=== PATIENT | female | born 1950 | race Caucasian/White ===

== ENCOUNTER 2018-06-04 09:11 | Inpatient (IN) | payer OTHER ==
[2018-06-04 09:22] VITALS: BMI 25.0
[2018-06-04] MEDS ORDERED: dilTIAZem HCL 125 MG/25 ML - 25 ML VIAL ONE ×2 (09:24→09:38)
[2018-06-04] MEDS ORDERED: dilTIAZem HCL 50 MG/10 ML - 10 ML VIAL IVPUSH ONE ×2 (09:27→09:43)
[2018-06-04] MEDS ORDERED: SODIUM CHLORIDE 1,000 ML IV ONE (09:27)
--- NOTE | 2018-06-04 09:28 | PDOC ---
Attending Attestation - Resident Resident Name: Kristofer Michaels - ED Attending Attestation I have performed the following: I have examined & evaluated the patient, The case was reviewed & discussed with the resident, I agree w/resident's findings & plan, Exceptions are as noted - HPI HPI: 06/04/18 09:46 68y F no known pmhx presents with not feeling well. pt found to be in rapid afib upon arrival. states she had some sob initially and felt generally weak this morning after awakening, when she came back from the bathroom she fell on the ground because she was feeling very week, falling on her face, Pt denies any LOC. Pt states after she fell, she had some L shoulder pain and L sided tingling/weakness that resolved after a few minutes. Pt endorses some facial pain in the nose/forehead. denies any cp, n/v, abd pain, back pain, neck pain. pt was feeling well yesterday and the past few days. no associated fever/cough, diarrhea, melena, bpr, dysuria. - Physicial Exam PE: 06/04/18 09:52 GENERAL: The patient is awake, alert, and fully oriented, Nontoxic - in no acute distress. HEAD: Normocephalic, atraumatic. EYES: extraocular movements intact, sclera anicteric, conjunctiva clear. ENT: Normal voice, Moist mucous membranes. NECK: Normal range of motion, supple LUNGS: Breath sounds equal, clear to auscultation bilaterally. No wheezes, no rhonchi, no rales. HEART: irregularly irregular, tachycardic ABDOMEN: Soft, nontender, normoactive bowel sounds. No guarding, no rebound. No CVA tenderness EXTREMITIES: Normal range of motion, trace edema. NEUROLOGICAL: No facial assymetry, Normal speech, moving all 4 extremities spontaneously and symemtrically PSYCH: Normal mood, normal affect. SKIN: Warm, Dry, normal turgor, - Critical Care Time Total Critical Care Time: 45 Critical Care Statement: The care of this patient involved high complexity decision making to prevent further life threatening deterioration of the patient 's condition and/or to evaluate & treat vital organ system(s) failure or risk of failure. - Medical Decision Making 06/04/18 09:53 Upno arrival pt was placed on director of cardiac rehabilitation,e kg obtained with afib with HR of 141. pt was given 10mg of cardizem withimprovement of HR to 120s, given another 10mg with improvement of HR to 100s. BP stable in 120/80s. pt given PO cardizem 06/04/18 10:21 hr stable 06/04/18 13:[address] bah - would recommend epixaban BID 5mg Cardizem 30mg Q6h consult placed in computer 06/04/18 14:07 due to initial presentation of possible L sided pain/tingling upgraded pt to stroke unit NIHSS = 0 not TPA candidate due to resolved sypmtoms upon arrival Heart Score/ECG Review - ECG Impressions Comment:: 06/04/18 10:22 EKg #1 Twelve-lead EKG was performed and reviewed by me. EKG performed 9:18 Irregularly irregular, rate of [address] wave abnormality no prior ekg for comparison EKG#2 EKG performed 10:05 Irregularly irregular, rate of [address] wave abnormality NIH Stroke Scale - Last Known Well Date/Time & Onset Date Last Known Well: 06/04/18 Time Last Known Well: 08:00 - Initial Evaluation Level of consciousness: Alert Ask patient the month and their age: Answers both correctly Ask patient to open & close eyes; make fist and let go: Obeys both correctly Best gaze (horizontal eye movement): Normal Visual field testing: No visual field loss Facial paresis (Show teeth/raise eyebrows/close eyes tight): Normal symmetrical movement Motor Function: Left Arm: Normal Motor Function: Right Arm: Normal (extends arm 90 (or 45) degrees for 10 seconds without drift Motor Function: Left Leg: Normal (extends leg 30 degrees for 5 seconds without drift) Motor Function: Right Leg: Normal (extends leg 30 degrees for 5 seconds without drift) Limb Ataxia: No ataxia Sensory(Use pinprick test arms,legs,trunk,face/side to side): Normal Best language (Describe picture, name items, read sentences): No Aphasia Dysarthria (read several words): Normal articulation Extinction and Inattention: No abnormality - Total Score NIH Stroke Scale Score: 0 tPA Exclusion Checklist 0-3hr - Time Elapsed Date last known well: 06/04/18 Time last known well: 08:00 Elaspsed time: Day(s) and 6 Hour(s) and 8 Minutes - Thrombolytic Therapy Candidate Is the patient eligible for Thrombolytic Therapy?: No - Relative Exclusion Criteria 0-3h Stroke severity too mild: Yes - Ineligibility reason(s) Reasons No tPA given: See reason(s) noted above
[2018-06-04 09:38] LABS: BASO % 0.2 % (0-2.0); EOS % 0.4 % (0-4.5); HEMATOCRIT 48.2 % (32.4-45.2); HEMOGLOBIN 15.8 GM/dL (10.7-15.3); LYMPH % 33.2 % (8-40); MCHC 32.7 g/dl (32.0-36.0); MEAN CELL VOLUME 85.6 fl (80-96); MEAN PLT VOLUME 7.9 fl (7.5-11.1); MONO % 6.6 % (3.8-10.2); NEUT % 59.6 % (42.8-82.8); PLATELET COUNT 226 K/MM3 (134-434); RBC 5.63 M/mm3 (3.60-5.2); RDW 13.6 % (11.6-15.6); WHITE BLOOD COUNT 6.2 K/mm3 (4.0-10.0)
[2018-06-04] MEDS ORDERED: dilTIAZem HCL 60 MG TABLET (FP) PO ONE (09:43)
[2018-06-04] MEDS ORDERED: dilTIAZem HCL 60 MG TABLET (FP) ONE (09:54)
[2018-06-04 10:10] LABS: INR 0.92 (0.83-1.09); PROTHROMBIN TIME (PATIENT) 10.8 SEC (9.7-13.0)
[2018-06-04 10:11] LABS: URINE APPEARANCE CLEAR; URINE BILIRUBIN NEGATIVE (<2.0 mg/dL); URINE COLOR STRAW; URINE GLUCOSE (UA) NEGATIVE (NEGATIVE); URINE KETONE 1+ (NEGATIVE); URINE LEUK ESTERASE NEGATIVE (NEGATIVE); URINE NITRITE NEGATIVE (NEGATIVE); URINE PROTEIN NEGATIVE (NEGATIVE); URINE UROBILINOGEN NEGATIVE mg/dL (0.2-1.0)
[2018-06-04 10:14] LABS: ALBUMIN 4.6 g/dl (3.4-5.0); ALK PHOS 68 U/L (45-117); ANION GAP 10 MMOL/L (8-16); BILIRUBIN,TOTAL 0.8 mg/dL (0.2-1); BLOOD UREA NITROGEN 22 mg/dL (7-18); CALCIUM 9.7 mg/dL (8.5-10.1); CHLORIDE 104 mmol/L (98-107); CO2 25 mmol/L (21-32); CREATININE 0.9 mg/dL (0.55-1.3); GLUCOSE,RANDOM 123 mg/dL (74-106); POTASSIUM 3.3 mmol/L (3.5-5.1); SGOT/AST 28 U/L (15-37); SGPT/ALT 39 U/L (13-61); SODIUM 139 mmol/L (136-145); TOT PROT 8.3 g/dl (6.4-8.2)
--- NOTE | 2018-06-04 10:17 | PDOC ---
History of Present Illness - General Chief Complaint: Injury Stated Complaint: FALL Time Seen by Provider: 06/04/18 09:12 History Source: Patient Exam Limitations: No Limitations - History of Present Illness Initial Comments: 06/04/18 10:02 Patient is an 68F with no significant medical history here today complaining of a fall. She states that she felt a pressure in her chest, short of breath, and weak all over her body. She is unsure if she lost consciousness. Patient stated that she had pain in her left arm along with some numbness and weakness after falling. Now, she is complaining of pain to her nose and face, along with a sensation of palpitations, chest pain, and shortness of breath. Denies fevers, chills, nausea, vomiting. Denies cardiac history. Denies leg swelling, history of blood clots. Past History - Past Medical History Allergies/Adverse Reactions: Allergies Allergy/AdvReac Type Severity Reaction Status Date / Time No Known Allergies Allergy Verified 06/04/18 09:18 Home Medications: Ambulatory Orders NK [No Known Home Medication] 06/04/18 COPD: No - Suicide/Smoking/Psychosocial Hx Smoking History: Unknown if ever smoked Review of Systems - Review of Systems Comments:: 06/04/18 10:17 GENERAL/CONSTITUTIONAL: No fever or chills. No weakness. HEAD, EYES, EARS, NOSE AND THROAT: No change in vision. No sore throat. CARDIOVASCULAR: +chest pain +shortness of breath RESPIRATORY: No cough, wheezing, or hemoptysis. GASTROINTESTINAL: No nausea, vomiting, diarrhea or constipation. GENITOURINARY: No dysuria, frequency, or change in urination. MUSCULOSKELETAL: +L arm pain. No neck or back pain. SKIN: No rash NEUROLOGIC: No headache, vertigo, or change in strength/sensation. ENDOCRINE: No increased thirst. No abnormal weight change HEMATOLOGIC/LYMPHATIC: No anemia, easy bleeding, or history of blood clots. ALLERGIC/IMMUNOLOGIC: No hives or skin allergy. *Physical Exam - Vital Signs Last Vital Signs Temp Pulse Resp BP Pulse Ox 97.6 F 148 H 20 170/100 100 06/04/18 09:18 06/04/18 09:18 06/04/18 09:18 06/04/18 09:18 06/04/18 09:18 - Physical Exam Comments: 06/04/18 10:19 GENERAL: Awake, alert, and fully oriented, in no acute distress HEAD: Bruising along nose and forehead, no lacerations L ARM: No focal tenderness, no signs of trauma EYES: PERRLA, EOMI, sclera anicteric, conjunctiva clear ENT: Auricles normal inspection, hearing grossly normal, nares patent, oropharynx clear without exudates. Moist mucosa NECK: Normal ROM, no midline tenderness LUNGS: No distress, speaks full sentences, clear to auscultation bilaterally HEART: Tachycardic, irregular ABDOMEN: Soft, nontender, normoactive bowel sounds. No guarding, no rebound. No masses EXTREMITIES: Normal inspection, Normal range of motion, no edema. No clubbing or cyanosis. NEUROLOGICAL: Cranial nerves II through XII grossly intact. Normal speech, no focal sensorimotor deficits SKIN: Warm, Dry, normal turgor, no rashes or lesions noted. Moderate Sedation - Procedure Monitoring Vital Signs: Procedure Monitoring Vital Signs Temperature 97.6 F 06/04/18 09:18 Pulse Rate 148 H 06/04/18 09:18 Respiratory Rate 20 06/04/18 09:18 Blood Pressure 170/100 06/04/18 09:18 O2 Sat by Pulse Oximetry (%) 100 06/04/18 09:18 ED Treatment Course - LABORATORY CBC & Chemistry Diagram: 06/04/18 09:30 06/04/18 09:30 - ADDITIONAL ORDERS Additional order review: 06/04/18 09:30 RBC 5.63 H MCV 85.6 MCHC 32.7 RDW 13.6 MPV 7.9 Neutrophils % 59.6 Lymphocytes % 33.2 Monocytes % 6.6 Eosinophils % 0.4 Basophils % 0.2 - Medications Given in the ED: ED Medications Discontinued Medications Generic Name Dose Route Start Last Admin Trade Name Freq PRN Reason Stop Dose Admin Diltiazem HCl 10 mg 06/04/18 09:27 06/04/18 09:35 Cardizem Injection - IVPUSH 06/04/18 09:28 10 mg ONCE ONE Administration Diltiazem HCl 10 mg 06/04/18 09:43 06/04/18 09:45 Cardizem Injection - IVPUSH 06/04/18 09:44 10 mg ONCE ONE Administration Medical Decision Making - Medical Decision Making 06/04/18 10:22 Patient is 68F here today with chest pain and shortness of breath. Vitals show tachycardia with variable rate 140s-160s. Normal RR and SPO2. EKG shows afib with rate of 142. BPs 170/100. Airway intact, breath sounds equal bilaterally. IV access established, started on fluids. Initial EKG shows afib with rvr, rate of 142. ST depressions diffusely, likely rate related. Normal axis. Normal QRS/QTc intervals. 2x 10mg of diltiazem given, rate control established. HR in 90s. Second EKG shows afib with rate of 98. Normal axis. Normal intervals. No st depressions/elevations. Will workup afib with rvr with cbc, cmp, trop, pt/inr. Will evaluate trauma with ct head face. Neck cleared clinically. No suspicion of fracture in L arm. 06/04/18 11:49 CBC normal. CMP shows mild hypokalemia, given KCl PO. Trop undetecable. CT head/ facial bones normal. Hospitalist paged for admission. *DC/Admit/Observation/Transfer Diagnosis at time of Disposition: Atrial fibrillation with RVR - Discharge Dispostion Condition at time of disposition: Stable Decision to Admit order: Yes - Referrals Referrals: Ирина Brown MD [Primary Care Provider] - - Patient Instructions - Post Discharge Activity
[2018-06-04 10:24] LABS: URINE HYALINE CAST 4 /lpf; URINE MUCUS RARE
[2018-06-04] MEDS ORDERED: SODIUM CHLORIDE 500 ML IV STA (11:34)
[2018-06-04] MEDS ORDERED: POTASSIUM CHLORIDE TABS 20 MEQ TABLET.ER (FP) PO ONE ×2 (11:34→11:49)
--- NOTE | 2018-06-04 12:45 | HP ---
CHIEF COMPLAINT: syncopal episode PCP: HISTORY OF PRESENT ILLNESS: Patient is a 68 year old female with no significant past medical history present after a fall this morning. She states that she was in the bathroom passing bowel movement without straining. Upon standing, she felt weak, short of breath, and lightheaded. As she walked back to her bedroom, she experienced syncopal episode. She was on the floor for approx 3-5 minutes. Subjectively felt weakness and parasthesias of her left side face, and left upper extremity weakness, lasting approx. 30 minutes, and spontaneously resolving. She denies loss of consciousness. Patient endorses squeezing chest pain after the fall that persisted until her heart rate was controlled in ED. At time of encounter, patient states she feels back to baseline. Patient's son at bedside notes no facial asymmetry, aphasia, or hemiparesis ER course was notable for: (1) EKG shows Afib with RVR at 142BPM (2) Cardizem 10mg IV X2, 60mg PO (3) IV NS bolus 1L Recent Travel: PAST MEDICAL HISTORY: denies PAST SURGICAL HISTORY: right wrist fracture repair with metal implant within forearm/ wrist. Social History: Smoking: denies Alcohol: denies Drugs: denies Lives: in second story of dwelling; lives in floor above her son. Does yoga daily, and volunteers in [employer]. Family History: Mother: DM Father: from stomach cancer at 85 y/o. Noted to have a "weak heart" Allergies No Known Allergies Allergy (Verified 06/04/18 09:18) HOME MEDICATIONS: Home Medications Medication Instructions Recorded NK [No Known Home Medication] 06/04/18 REVIEW OF SYSTEMS CONSTITUTIONAL: Absent: fever, chills, diaphoresis, generalized weakness, malaise, loss of appetite, weight change HEENT: Absent: rhinorrhea, nasal congestion, throat pain, throat swelling, difficulty swallowing, mouth swelling, ear pain, eye pain, visual changes CARDIOVASCULAR: Absent: chest pain, syncope, palpitations, irregular heart rate, lightheadedness , peripheral edema RESPIRATORY: Absent: cough, shortness of breath, dyspnea with exertion, orthopnea, wheezing, stridor, hemoptysis GASTROINTESTINAL: Absent: abdominal pain, abdominal distension, nausea, vomiting, diarrhea, constipation, melena, hematochezia MUSCULOSKELETAL: Admits: left shoulder pain. Absent: myalgia, arthralgia, joint swelling, back pain NEUROLOGIC: Admits: fall, weakness left sided face, and left upper extremity (resolved), lightheadedness (resolved). Absent: headache, unsteady gait, seizure, mental status changes, bladder or bowel incontinence PSYCHIATRIC: Absent: anxiety, depression, suicidal or homicidal ideation, hallucinations. PHYSICAL EXAMINATION Vital Signs - 24 hr 06/04/18 06/04/18 06/04/18 09:18 10:00 11:28 Temperature 97.6 F Pulse Rate 148 H Pulse Rate [ 101 H 118 H Apical] Respiratory 20 16 18 Rate Blood Pressure 170/100 Blood Pressure 122/75 115/66 [Right Arm] O2 Sat by Pulse 100 95 97 Oximetry (%) 06/04/18 11:56 Temperature Pulse Rate Pulse Rate [ 119 H Apical] Respiratory 20 Rate Blood Pressure Blood Pressure 115/66 [Right Arm] O2 Sat by Pulse 95 Oximetry (%) GENERAL: Awake, alert, and fully oriented, in no acute distress. HEAD: Normal with no signs of trauma. EYES: Pupils equal, round and reactive to light, extraocular movements intact, sclera anicteric. EARS, NOSE, THROAT: Opharynx clear without exudates. Moist mucous membranes. NECK: Supple without lymphadenopathy. No JVD. LUNGS: Breath sounds equal, clear to auscultation bilaterally. No wheezes, and no crackles. No accessory muscle use. HEART: Irregular rate and rhythm. Normal S1 and S2 without murmur, rub or gallop. ABDOMEN: Soft, nontender, not distended. Normoactive bowel sounds X4 quadrants, no guarding, no rebound tenderness. MUSCULOSKELETAL: Normal range of motion at all joints. No bony deformities or tenderness. No CVA tenderness. UPPER EXTREMITIES: 2+ radial pulses b/l, warm, well-perfused. Strength 5/5 b/l upper extremities. LOWER EXTREMITIES: 2+ dorsalis pedis pulses b/l, warm, well-perfused. No calf tenderness, no peripheral edema b/l lower extremities. NEUROLOGICAL: Cranial nerves II-XII intact. Normal speech. Normal gait. Strength 5/5 b/l upper and lower extremities. Sensation intact, equal b/l upper and lower extremities. PSYCHIATRIC: Cooperative. Good eye contact. Appropriate mood and affect. SKIN: Warm, dry, normal turgor, no rashes or lesions noted. Laboratory Results - last 24 hr 06/04/18 06/04/18 06/04/18 09:30 09:30 09:30 WBC 6.2 RBC 5.63 H Hgb 15.8 H Hct 48.2 H MCV 85.6 MCH 28.0 MCHC 32.7 RDW 13.6 Plt Count 226 MPV 7.9 Absolute Neuts (auto) 3.7 Neutrophils % 59.6 Lymphocytes % 33.2 Monocytes % 6.6 Eosinophils % 0.4 Basophils % 0.2 Nucleated RBC % 0 PT with INR 10.80 INR 0.92 Sodium 139 Potassium 3.3 L Chloride 104 Carbon Dioxide 25 Anion Gap 10 BUN 22 H Creatinine 0.9 Creat Clearance w eGFR > 60 Random Glucose 123 H Calcium 9.7 Total Bilirubin 0.8 AST 28 ALT 39 Alkaline Phosphatase 68 Creatine Kinase 370 H Creatine Kinase Index 1.2 CK-MB (CK-2) 4.8 H Troponin I < 0.02 Total Protein 8.3 H Albumin 4.6 TSH 3.16 Urine Color Urine Appearance Urine pH Ur Specific [place] Urine Protein Urine Glucose (UA) Urine Ketones Urine Blood Urine Nitrite Urine Bilirubin Urine Urobilinogen Ur Leukocyte Esterase Urine WBC (Auto) Urine RBC (Auto) Hyaline Casts Urine Mucus 06/04/18 09:34 WBC RBC Hgb Hct MCV MCH MCHC RDW Plt Count MPV Absolute Neuts (auto) Neutrophils % Lymphocytes % Monocytes % Eosinophils % Basophils % Nucleated RBC % PT with INR INR Sodium Potassium Chloride Carbon Dioxide Anion Gap BUN Creatinine Creat Clearance w eGFR Random Glucose Calcium Total Bilirubin AST ALT Alkaline Phosphatase Creatine Kinase Creatine Kinase Index CK-MB (CK-2) Troponin I Total Protein Albumin TSH Urine Color Straw Urine Appearance Clear Urine pH 7.0 Ur Specific [place] 1.010 Urine Protein Negative Urine Glucose (UA) Negative Urine Ketones 1+ H Urine Blood 2+ H Urine Nitrite Negative Urine Bilirubin Negative Urine Urobilinogen Negative Ur Leukocyte Esterase Negative Urine WBC (Auto) <1 Urine RBC (Auto) 5 Hyaline Casts 4 Urine Mucus Rare ASSESSMENT/PLAN: Patient is a 68 year old female with no significant past medical history, presents after a syncopal episode. Syncope -Possibility of TIA with patient's subjective left sided facial weakness, and parasthesia, and left upper extremity weakness. -CT head negative for acute intracranial pathology. -Trop 0.02. Will follow X2. -Neurology consult (Dr. Adorno) -Lipitor 40mg PO daily -Aspirin 324mg PO given in ED -Fall precautions -PT evaluation -Speech and swallow evaluation. Patient tolerated bedside swallow evaluation, however, noted mild nausea after eating chicken. Will place on full liquid diet , and advance as tolerated. Afib -New onset. Patient denies prior history of Afib. TSH 3.16 -Rate control with Cardizem 30mg PO Q6H -Telemetry monitoring -Cardiology consult (Dr. Medina) appreciated. -Patient received Eliquis 5mg PO one time dose in ED. As patient is receiving Aspirin, will hold Eliquis, until repeat CT head tomorrow. -F/U cardiac ECHO Hemoconcentration -Unclear etiology, though patient endorses drinking at least "1 gallon" of water daily. -IV normal saline at 100mL/ hour X 2 liters. Monitor closely for volume overload. -F/U Hb/ Hct FEN -IV normal saline at 100mL/ hour -Within normal limits. Follow CMP -Full liquid diet. Pending speech/ swallow evaluation. Prophylaxis -SCDs, TEDs B/L lower extremities Disposition -Admit to Telemetry. Visit type - Emergency Visit Emergency Visit: Yes ED Registration Date: 06/04/18 Care time: The patient presented to the Emergency Department on the above date and was hospitalized for further evaluation of their emergent condition. - New Patient This patient is new to me today: Yes Date on this admission: 06/04/18 - Critical Care Critical Care patient: No
[2018-06-04] MEDS ORDERED: ASPIRIN 81 MG CHEWABLE TABLETS PO ONE (13:22)
[2018-06-04] MEDS ORDERED: ASPIRIN 81 MG CHEWABLE TABLETS ONE ×2 (13:33→13:34)
[2018-06-04] MEDS ORDERED: APIXABAN 5 MG TABLET PO ONE ×2 (13:42→14:54)
[2018-06-04] MEDS ORDERED: ATORVASTATIN CA 40 MG TABLET (FP) PO ONE (13:57)
[2018-06-04] MEDS ORDERED: ASPIRIN 325 MG ENTERIC COATED TABLET (FP) PO SCH (14:00)
[2018-06-04] MEDS ORDERED: ATORVASTATIN CA 40 MG TABLET (FP) ONE (14:55)
[2018-06-04] MEDS: SODIUM CHLORIDE 1,000 ML IV SCH (15:00)
[2018-06-04] MEDS ORDERED: PT OWN MED DRAWER 7, Y5N ONE (16:47)
--- NOTE | 2018-06-04 17:44 | CON.CARD ---
Consult Consult Specialty:: cardiology Reason for Consultation:: new-onset AF - History of Present Illness Chief Complaint: Ptg ambulatory; A&Ox3; asymptomatic presently. History of Present Illness: 68y white woman (allie Bailey) with no known pmhx presents with not feeling well. pt found to be in rapid afib upon arrival. states she had some sob initially and felt generally weak this morning after awakening, when she came back from the bathroom she fell on the ground because she was feeling very week, falling on her face, Pt denies any LOC. Pt states after she fell, she had some L shoulder pain and L sided tingling/weakness that resolved after a few minutes. Pt endorses some facial pain in the nose/forehead. denies any cp, n/v, abd pain , back pain, neck pain. pt was feeling well yesterday and the past few days. no associated fever/cough, diarrhea, melena, bpr, dysuria. Pt gives hx of occasional bilateral ankle swelling. - History Source History Provided By: Patient, Medical Record Limitations to Obtaining History: No Limitations - Past Medical History Reproductive: Yes: Postmenopausal ...: No - Alcohol/Substance Use Hx Alcohol Use: No - Smoking History Smoking history: Never smoked Home Medications - Allergies Allergies/Adverse Reactions: Allergies Allergy/AdvReac Type Severity Reaction Status Date / Time No Known Allergies Allergy Verified 06/04/18 09:18 - Home Medications Home Medications: Ambulatory Orders Apixaban [Eliquis -] 5 mg PO BID 30 Days #60 tablet 06/05/18 Diltiazem [Cardizem -] 30 mg PO Q6HPO 30 Days #120 tablet 06/05/18 Family Disease History - Family Disease History Family History: Denies Review of Systems - Review of Systems Constitutional: reports: No Symptoms Eyes: reports: No Symptoms HENT: reports: No Symptoms Neck: reports: No Symptoms Cardiovascular: reports: Palpitations Respiratory: reports: No Symptoms Gastrointestinal: reports: No Symptoms Genitourinary: reports: No Symptoms Breasts: reports: No Symptoms Reported Musculoskeletal: reports: Other (ocassional LE muscle "twitches") Neurological: reports: No Symptoms Endocrine: reports: No Symptoms, Unexplained Weight Gain Psychiatric: reports: Anxiety - Risk Factors Known Risk Factors: Yes: Age Vital Signs: Vital Signs Temperature 98.1 F 06/04/18 17:06 Pulse Rate 87 06/04/18 17:06 Respiratory Rate 18 06/04/18 17:06 Blood Pressure 152/86 06/04/18 17:06 O2 Sat by Pulse Oximetry (%) 97 06/04/18 17:06 Abnormal Lab Results 06/05/18 06/05/18 06:38 06:38 Chloride 111 H Anion Gap 4 L Calcium 8.0 L Total Bilirubin 1.2 H C-Reactive Protein 0.4 H Total Protein 5.7 L Albumin 3.2 L HDL Cholesterol 89 H Constitutional: Yes: Anxious Eyes: Yes: WNL HENT: Yes: WNL Neck: Yes: WNL Respiratory: Yes: WNL Gastrointestinal: Yes: Soft Renal/: No: Anuria Cardiovascular: Yes: Regular Rate and Rhythm JVD: No Carotid Bruit: No PMI: Non-Displaced Heart Sounds: Yes: S1, S2 Murmur: Yes: Systolic Murmur, Grade 1 Musculoskeletal: Yes: WNL Extremities: Yes: WNL Edema: No Peripheral Pulses WNL: Yes Integumentary: Yes: WNL Neurological: Yes: WNL Psychiatric: Yes: WNL - Other Data Labs, Other Data: CBC, BMP 06/04/18 09:30 06/04/18 09:30 INR, PTT INR 0.92 (0.83-1.09) 06/04/18 09:30 Troponin, BNP 06/04/18 06/04/18 09:30 14:04 Troponin I < 0.02 0.02 Troponin, BNP 06/04/18 06/04/18 09:30 14:04 Troponin I < 0.02 0.02 Abnormal Lab Results 06/05/18 06/05/18 06:38 06:38 Chloride 111 H Anion Gap 4 L Calcium 8.0 L Total Bilirubin 1.2 H C-Reactive Protein 0.4 H Total Protein 5.7 L Albumin 3.2 L HDL Cholesterol 89 H Imaging - Results Chest X-ray: Image Reviewed EKG: Image Reviewed Other: Image Reviewed (telemetry: NSR) Problem List - Problems (1) HTN (hypertension) Code(s): I10 - ESSENTIAL (PRIMARY) HYPERTENSION (2) Syncope Assessment/Plan: Pt is unsure if she lost consciousness. TNI < 0.02; f/u serially. F/u orthostatic vital signs. Avoid dehydration. ECHO for LVEF. Code(s): R55 - SYNCOPE AND COLLAPSE (3) Atrial fibrillation with RVR Assessment/Plan: IVP diltiazem, with PO diltiazem; now converted to normal sinus rhythm. Received one dose of apixaban, and is on ASA (?TIA; no acute pathology on CT head). EKG: initially AF, with ?LVH, and nonspcific ST changes; now telemetry shows NSR with frequent APCs. TNI < 0.02 x 2. TSH WNL. F/u serial EKGs ECHO for LVEF, chamber sizes, valve status. Code(s): I48.91 - UNSPECIFIED ATRIAL FIBRILLATION (4) Hypokalemia Assessment/Plan: replete; keep K+ 4-4.5, and follow all electrolytes. W/u regarding etiology of K+ reduction. Code(s): E87.6 - HYPOKALEMIA
[2018-06-04] MEDS: dilTIAZem HCL 30 MG TABLET (FP) PO SCH ×2 (18:33→23:17)
--- NOTE | 2018-06-04 19:39 | PN ---
Teaching Attending Note Name of Resident: Dhruv Castro ATTENDING PHYSICIAN STATEMENT I saw and evaluated the patient. I reviewed the resident's note and discussed the case with the resident. I agree with the resident's findings and plan as documented. SUBJECTIVE: Patient is a 68 year old female with no significant past medical history presented after having a syncopal episode and hit her head and nose. As per son , patient had a slurred speech which lasted a short period of time, and left sided weakness which resolved as per son who is at bedside. Vital Signs Temperature 98.2 F 06/04/18 17:44 Pulse Rate 83 06/04/18 17:44 Respiratory Rate 18 06/04/18 17:44 Blood Pressure 114/66 06/04/18 17:44 O2 Sat by Pulse Oximetry (%) 97 06/04/18 17:06 Initial Vital Signs Temp Pulse Resp BP Pulse Ox 97.6 F 148 H 20 170/100 100 06/04/18 09:18 06/04/18 09:18 06/04/18 09:18 06/04/18 09:18 06/04/18 09:18 GENERAL: Awake, alert, and fully oriented, in no acute distress. HEAD: Normal with no signs of trauma. EYES: Pupils equal, round and reactive to light, extraocular movements intact, sclera anicteric. EARS, NOSE, THROAT: Opharynx clear without exudates. Moist mucous membranes. NECK: Supple without lymphadenopathy. No JVD. LUNGS: Breath sounds equal, clear to auscultation bilaterally. No wheezes, and no crackles. No accessory muscle use. HEART: Irregular rate and rhythm. Normal S1 and S2 without murmur, rub or gallop. ABDOMEN: Soft, nontender, not distended. Normoactive bowel sounds X4 quadrants, no guarding, no rebound tenderness. MUSCULOSKELETAL: Normal range of motion at all joints. No bony deformities or tenderness. No CVA tenderness. EXTREMITIES: positive for pulses , warm, well-perfused. No calf tenderness, positive for trace edema bl. NEUROLOGICAL: Cranial nerves II-XII intact. Normal speech. Normal gait. Strength 5/5 b/l upper and lower extremities. sensation intact PSYCHIATRIC: Cooperative. Good eye contact. Appropriate mood and affect. SKIN: Warm, dry, normal turgor, no rashes or lesions noted. CBCD WBC 6.2 K/mm3 (4.0-10.0) 06/04/18 09:30 RBC 5.63 M/mm3 (3.60-5.2) H 06/04/18 09:30 Hgb 15.8 GM/dL (10.7-15.3) H 06/04/18 09:30 Hct 48.2 % (32.4-45.2) H 06/04/18 09:30 MCV 85.6 fl (80-96) 06/04/18 09:30 MCHC 32.7 g/dl (32.0-36.0) 06/04/18 09:30 RDW 13.6 % (11.6-15.6) 06/04/18 09:30 Plt Count 226 K/MM3 (134-434) 06/04/18 09:30 MPV 7.9 fl (7.5-11.1) 06/04/18 09:30 CMP Sodium 139 mmol/L (136-145) 06/04/18 09:30 Potassium 3.3 mmol/L (3.5-5.1) L 06/04/18 09:30 Chloride 104 mmol/L (98-107) 06/04/18 09:30 Carbon Dioxide 25 mmol/L (21-32) 06/04/18 09:30 Anion Gap 10 MMOL/L (8-16) 06/04/18 09:30 BUN 22 mg/dL (7-18) H 06/04/18 09:30 Creatinine 0.9 mg/dL (0.55-1.3) 06/04/18 09:30 Creat Clearance w eGFR > 60 (>60) 06/04/18 09:30 Random Glucose 123 mg/dL (74-106) H 06/04/18 09:30 Calcium 9.7 mg/dL (8.5-10.1) 06/04/18 09:30 Total Bilirubin 0.8 mg/dL (0.2-1) 06/04/18 09:30 AST 28 U/L (15-37) 06/04/18 09:30 ALT 39 U/L (13-61) 06/04/18 09:30 Alkaline Phosphatase 68 U/L (45-117) 06/04/18 09:30 Total Protein 8.3 g/dl (6.4-8.2) H 06/04/18 09:30 Albumin 4.6 g/dl (3.4-5.0) 06/04/18 09:30 CARDIAC ENZYMES Creatine Kinase 370 IU/L (26-192) H 06/04/18 09:30 Troponin I 0.02 ng/ml (0.00-0.05) 06/04/18 14:04 Home Medications Medication Instructions Recorded NK [No Known Home Medication] 06/04/18 ASSESSMENT AND PLAN: Patient is a 68 year old female with no significant past medical history, presents after a syncopal episode with TIA symptoms and was found to have Afib with RVR . # Afibe with RVR: TSH 3.16, tele. for consult , discussed with, given aspirin in ED. will place her on lipitor 40mg daily, ECHO ordered, follow # Syncope s/p hitting her head and the nose, no fx on xray # TIa r/o CVA on aspirin and lipitor .neuro consult, initial CT is negative DVT Px: -SCDs, TEDs B/L lower extremities -Admit to to stroke unit.
[2018-06-04] MEDS ORDERED: APIXABAN 5 MG TABLET PO SCH (22:00)
[2018-06-05] MEDS: SODIUM CHLORIDE 1,000 ML IV SCH ×2 (04:40→15:34)
[2018-06-05] MEDS: dilTIAZem HCL 30 MG TABLET (FP) PO SCH ×3 (06:06→17:32)
[2018-06-05 07:22] LABS: HEMATOCRIT 38.7 % (32.4-45.2); HEMOGLOBIN 12.6 GM/dL (10.7-15.3); MCH 28.2 pg (25.7-33.7); MCHC 32.6 g/dl (32.0-36.0); MEAN CELL VOLUME 86.5 fl (80-96); PLATELET COUNT 182 K/MM3 (134-434); RBC 4.48 M/mm3 (3.60-5.2); RDW 13.5 % (11.6-15.6); WHITE BLOOD COUNT 4.7 K/mm3 (4.0-10.0)
[2018-06-05 07:40] LABS: ALBUMIN 3.2 g/dl (3.4-5.0); ALK PHOS 46 U/L (45-117); ANION GAP 4 MMOL/L (8-16); BILIRUBIN,TOTAL 1.2 mg/dL (0.2-1); BLOOD UREA NITROGEN 15 mg/dL (7-18); CHLORIDE 111 mmol/L (98-107); CO2 27 mmol/L (21-32); CREATININE 0.8 mg/dL (0.55-1.3); GLUCOSE,RANDOM 102 mg/dL (74-106); PHOSPHOROUS 3.3 mg/dL (2.5-4.9); POTASSIUM 3.9 mmol/L (3.5-5.1); SGOT/AST 21 U/L (15-37); SGPT/ALT 28 U/L (13-61); SODIUM 142 mmol/L (136-145); TOT PROT 5.7 g/dl (6.4-8.2)
[2018-06-05] MEDS ORDERED: ASPIRIN 325 MG ENTERIC COATED TABLET (FP) PO SCH (10:00)
--- NOTE | 2018-06-05 10:43 | ECHO ---
Version: 1 Name: BERNARD GRACE Exam: Adult Echocardiogram Study Date: 06/05/2018, 7:34 AM Age: 68 Years MMode/2D Measurements & Calculations IVSd: 0.87 cm LVIDs: 3.0 cm LVIDd: 4.5 cm LVPWd: 0.86 cm LAV (MOD-bp): 40.0 ml Ao root diam: 3.1 cm LA dimension: 3.3 cm Doppler Measurements & Calculations MV E max yuval: 78.1 cm/sec Med E/e': 10.4 MV A max yuval: 73.7 cm/sec Med Peak E' Yuval: 7.5 cm/sec MV E/A: 1.06 Lat E/e': 7.5 Lat Peak E' Yuval: 10.4 cm/sec Procedure A two-dimensional transthoracic echocardiogram with color flow and Doppler was performed. Left Ventricle The left ventricular size, thickness and function are normal. The left ventricular ejection fraction is normal. Left Ventricular Filling pattern is normal for age. The left ventricular wall motion is norm al. Right Ventricle The right ventricle is normal in size and function. Atria Normal left and right atrial size and function. Mitral Valve There is mild mitral valve thickening. There is no mitral valve stenosis. There is mild mitral regur gitation. Tricuspid Valve The tricuspid valve is not well visualized. There is no tricuspid stenosis. There was insufficient T R detected to calculate RV systolic pressure. Aortic Valve The aortic valve is normal in structure and function. No hemodynamically significant valvular aortic stenosis. No aortic regurgitation is present. Pulmonic Valve The pulmonic valve is not well visualized. There is no pulmonic valvular stenosis. Mild pulmonic varun vular regurgitation. Great Vessels The aortic root is normal size. Pericardium/Pleura There is no pericardial effusion. Summary Statements The left ventricular size, thickness and function are normal The left ventricular ejection fraction is normal. The left ventricular wall motion is normal. There is mild mitral regurgitation. Left Ventricular Filling pattern is normal for age. There was insufficient TR detected to calculate RV systolic pressure. MD David Medina 06/05/2018, 10:42 AM Ordering Physician: SHANEKA LYLES Referring Physician: Chavo Ospina Performed By: Nanda Chadwick
--- NOTE | 2018-06-05 11:59 | EKG ---
Test Reason : Blood Pressure : / mmHG Vent. Rate : 070 BPM Atrial Rate : 070 BPM P-R Int : 166 ms QRS Dur : 088 ms QT Int : 394 ms P-R-T Axes : 053 -01 017 degrees QTc Int : 425 ms NORMAL SINUS RHYTHM NORMAL ECG WHEN COMPARED WITH ECG OF 04-JUN-2018 10:05, SINUS RHYTHM HAS REPLACED ATRIAL FIBRILLATION Confirmed by OSCAR PATRICIO MD ([id number]) on 06/05/2018 11:59:24 AM Referred By: Kerry LA Confirmed By:OSCAR PATRICIO MD
--- NOTE | 2018-06-05 14:34 | CON.NEURO ---
Consult Consult Specialty:: Kyree Referred by:: ER - History of Present Illness History of Present Illness: 68years old woman with ?? PMH patient was at her [facility] with sudden onset of upset stomach shaking allover ?? near syncope with no fall no head trauma No urinary inconetnce No tongue biting Patient was found in rapid Afib AC was astarted two head Ct noted - History Source History Provided By: Patient Limitations to Obtaining History: No Limitations - Past Medical History ...: No - Alcohol/Substance Use Hx Alcohol Use: No - Smoking History Smoking history: Never smoked Home Medications - Allergies Allergies/Adverse Reactions: Allergies Allergy/AdvReac Type Severity Reaction Status Date / Time No Known Allergies Allergy Verified 06/04/18 09:18 - Home Medications Home Medications: Ambulatory Orders NK [No Known Home Medication] 06/04/18 Family Disease History - Family Disease History Family History: Denies (sz) Review of Systems - Review of Systems Constitutional: reports: No Symptoms Eyes: reports: No Symptoms HENT: reports: No Symptoms Neurological: reports: Headache, Incoordination, Numbness Physical Exam-Neuro Vital Signs: Vital Signs Temperature 97.9 F 06/05/18 12:32 Pulse Rate 74 06/05/18 12:32 Respiratory Rate 16 06/05/18 12:32 Blood Pressure 139/72 06/05/18 12:32 O2 Sat by Pulse Oximetry (%) 97 06/05/18 09:38 Constitutional: Yes: Well Nourished Neck: Yes: WNL Cardiovascular: Yes: WNL Labs: CBC, BMP 06/05/18 06:38 06/05/18 06:38 INR, PTT INR 0.92 (0.83-1.09) 06/04/18 09:30 - Neuro Exam Level Of Consciousness: Yes: Oriented to Person, Oriented to Place, Oriented to Time Eyes: Yes: PERRLA Speech: WNL Dominant Hand: Right Cranial Nerves II-XII Intact: Yes Gag: Present DTR's: 1+ Left Bicep, 1+ Right Bicep, 1+ Left Brachioradialis, 1+ Right Brachioradialis Response to light touch: Normal Response to pain prick: Normal Response to temperature: Normal Response to vibration: Normal Motor Strength: 3/5: Left Arm, Right Arm, Left Leg, Right Leg Gait: Deferred Imaging - Results Cat Scan: Image Reviewed Problem List - Problems (1) Syncope Assessment/Plan: TIA with cardiac Arrythmia No nee dfor MRI Only AC No ASA Need EEG as outpatient Neurol ok to go home Follow up with cardiology Code(s): R55 - SYNCOPE AND COLLAPSE
--- NOTE | 2018-06-05 14:51 | CONSULT ---
Admitting History and Physical - Admission Chief Complaint: Pt. is s/p syncopal episode. Atrial fibrilation with RVR. Limitations to Obtaining History: No Limitations - Past Medical History ...: No - Smoking History Smoking history: Never smoked - Alcohol/Substance Use Hx Alcohol Use: No History - Admission Reason For Visit: ATRIAL FIBRILLATION WITH RAPID VENTRICULAR RESPONE - General Mental Status: Alert and Oriented, Awake and Alert, Able to Follow Commands Attention: Intact Ability to Follow Directions: Good Head/Neck Control: WFL - Hearing Hearing: Normal Hearing: Normal Hearing Aide: No With Patient: No Speech Evaluation - Communication Primary Language: SWEDISH (Pt. able to speak and understand Hebrew at conversational level.) Communication: Yes: Within Normal Limits Oral Expression Ability: Yes: No Impairment - Speech Production Apraxia: No Able to Make Needs Known: Yes: WNL Intelligibility: Yes: WNL - Speech Characteristics Voice Loudness: Normal Voice Pitch: Yes: Normal Voice Phonatory-based Quality: Yes: Normal Speech Pattern: Normal Nasal Resonance: Normal Articulation: Yes: Precise Rate of Speech: Intact - Language/Auditory Comprehension Follows: Yes: 1 Stage Simple Commands Observation: Able to respond to yes/no queries: Yes, Yes/No Confusion: No, Comprehends Conversational Speech: Yes - Language/Verbal Expression Able to Respond to Simple Queries: Yes: WNL Able to Communicate Wants and Needs: Yes: WNL Functional Communication Status: Yes: WNL Oral Expression: Communicates using full sentences. No difficulty reported by patient or her [id number]. Attention: Yes: Intact - Memory/Perception longterm Memory: Yes: WNL Short Term Memory: Yes: WNL - Swallow Evaluation/Bedside Assessment Current Nutritional Intake: Regular Oral Secretions: Yes: WFL Tracheostomy Present: No Patient on Ventilator: No Dentition: Yes: Adequate Facial Symmetry at Rest: Symmetrical Facial Symmetry on Retraction: Symmetrical Facial Movement: Controlled Sensation: Normal Lingual Movement: Normal Lingual Speed of Movement: Normal Lingual Movement Strgth Against Opposition: Normal Lingual Movement Characteristics: Normal Soft Palate Description: Normal Color Hard Palate Description: Normal Color Gag Reflex: Strong Labial Seal: WFL Chewing: WFL Oral Prep Time: WFL A-P Transit: WFL Pocketing: None Timing of Swallow: WFL Coughing/Throat Clear: No Change in Voice: No Recommendations - Speech Evaluation, Impression/Plan Impression: Pt. presents with intact receptive and expressive communication. Swallow function judged WNL for regular solid textures and thin liquids. Speech therapy intervention not indicated at this time. Recommended Therapies: Other - Dysphagia Impressions/Plan Swallowing Skills: WFL - Recommendations Diet Consistency: Regular Medication Administration: Whole with water Liquids: Thin Liquids
--- NOTE | 2018-06-05 18:59 | DS ---
Physical Exam: SUBJECTIVE: Patient seen and examined at bedside this morning. No acute overnight events. No chest pain, no palpitations. She remains rate controlled in sinus rhythm on telemetry. She expresses desire to go home. OBJECTIVE: Vital Signs Period Temp Pulse Resp BP Sys/Lazcano Pulse Ox Last 24 Hr 97.8 F-98.2 F 67-85 16-18 108-139/49-87 97-98 PHYSICAL EXAM GENERAL: Awake, alert, and fully oriented, in no acute distress. HEAD: Normal with no signs of trauma. EYES: Pupils equal, round and reactive to light, extraocular movements intact, sclera anicteric. EARS, NOSE, THROAT: Opharynx clear without exudates. Moist mucous membranes. NECK: Supple without lymphadenopathy. No JVD. LUNGS: Breath sounds equal, clear to auscultation bilaterally. No wheezes, and no crackles. No accessory muscle use. HEART: Regular rate and rhythm. Normal S1 and S2 without murmur, rub or gallop. ABDOMEN: Soft, nontender, not distended. Normoactive bowel sounds X4 quadrants, no guarding, no rebound tenderness. MUSCULOSKELETAL: Normal range of motion at all joints. No bony deformities or tenderness. No CVA tenderness. UPPER EXTREMITIES: 2+ radial pulses b/l, warm, well-perfused. Strength 5/5 b/l upper extremities. LOWER EXTREMITIES: 2+ dorsalis pedis pulses b/l, warm, well-perfused. No calf tenderness, no peripheral edema b/l lower extremities. NEUROLOGICAL: Cranial nerves II-XII intact. Normal speech. Normal gait. Strength 5/5 b/l upper and lower extremities. Sensation intact, equal b/l upper and lower extremities. PSYCHIATRIC: Cooperative. Good eye contact. Appropriate mood and affect. SKIN: Warm, dry, normal turgor, no rashes or lesions noted. LABS Laboratory Results - last 24 hr 06/04/18 06/04/18 06/05/18 20:20 20:20 06:38 WBC 4.7 RBC 4.48 Hgb 12.6 Hct 38.7 D MCV 86.5 MCH 28.2 MCHC 32.6 RDW 13.5 Plt Count 182 MPV 8.0 Sodium Potassium Chloride Carbon Dioxide Anion Gap BUN Creatinine Creat Clearance w eGFR Random Glucose Hemoglobin A1c % 6.0 Calcium Phosphorus Magnesium Total Bilirubin AST ALT Alkaline Phosphatase Troponin I < 0.02 C-Reactive Protein Total Protein Albumin Triglycerides Cholesterol Total LDL Cholesterol HDL Cholesterol 06/05/18 06/05/18 06:38 06:38 WBC RBC Hgb Hct MCV MCH MCHC RDW Plt Count MPV Sodium 142 Potassium 3.9 Chloride 111 H Carbon Dioxide 27 Anion Gap 4 L BUN 15 Creatinine 0.8 Creat Clearance w eGFR > 60 Random Glucose 102 Hemoglobin A1c % Calcium 8.0 L Phosphorus 3.3 Magnesium 2.0 Total Bilirubin 1.2 H AST 21 ALT 28 Alkaline Phosphatase 46 Troponin I C-Reactive Protein 0.4 H Total Protein 5.7 L Albumin 3.2 L Triglycerides 71 Cholesterol 194 Total LDL Cholesterol 88 HDL Cholesterol 89 H HOSPITAL COURSE: Date of Admission:06/04/18 Date of Discharge: 06/05/18 Patient is a 68 year old female with no significant past medical history, presents after a syncopal episode associated with chest palpitations and chest tightness. She noted left sided facial and upper extremity weakness with parasthesias that spontaneously resolved approx. [address] head negative for intracranial hemorrhage. In the ED she was found to be in Afib with RVR at 142 BPM. Denied prior history of Afib. She was converted, and rate controlled with Cardizem. Patient was given Aspirin, Statin, and one dose of Eliquis. Neurology evaluation noted TIA with cardiac arrhythmia, and no need for MRI. Repeat CT head confirmed no intracranial hemorrhage, and Eliquis was continued. ECHO showed normal LVEF, LV size thickness and function. Patient cleared for discharge by neurology and cardiology. Patient discharged with Cardizem, Eliquis, and Atorvastatin. No aspirin as per neurology recommendations. Follow up with primary care physician, cardiology (exercise stress test, and EP follow up), and neurology (EEG outpatient). Patient remained rate controlled in sinus rhythm. Minutes to complete discharge: 35 Discharge Summary Reason For Visit: ATRIAL FIBRILLATION WITH RAPID VENTRICULAR RESPONE Current Active Problems Atrial fibrillation with RVR (Acute) HTN (hypertension) (Acute) Hypokalemia (Acute) Syncope (Acute) Condition: Stable - Instructions Diet, Activity, Other Instructions: You were admitted after a fall at home. Your heart rate was noted to be irregular (Atrial Fibrillation) and your were given medication to control the heart rate. You will begin taking Cardizem 30mg every 6 hours daily to control the heart rate You will begin taking Eliquis 5mg every 12 hours daily to prevent blood clots. This medication may increase your bleeding risk with any cuts, falls, or injury. You will begin taking Lipitor 40mg daily. Follow up with your primary care provider for bloodwork (liver function tests) within 4 weeks of starting the medication. Let your primary care physician know immediately if you develop any muscle pains. Follow up with your primary care physician within two- three days after discharge Follow up with Material Controller within one week of discharge. You may need stress test, and follow up with an marketing data specialist, and will discuss this further at your appointment. Follow up with Neurologist within one week of discharge. You will need EEG done as an outpatient. Discuss this further with neurologist at your appointment. Please return to the nearest Emergency Department if you experience any worsening symptoms, fevers, chills, shortness of breath, chest pain, palpitations, abdominal pain, nausea, vomiting, falls, loss of consciousness. Referrals: Ирина Brown MD [Primary Care Provider] - David Medina MD [Staff Physician] - Margret Adorno MD [Staff Physician] - Disposition: HOME - Home Medications Comprehensive Discharge Medication List: Ambulatory Orders Apixaban [Eliquis -] 5 mg PO BID 30 Days #60 tablet 06/05/18 Diltiazem [Cardizem -] 30 mg PO Q6HPO 30 Days #120 tablet 06/05/18 This patient is new to me today: No Emergency Visit: Yes ED Registration Date: 06/04/18 Care time: The patient presented to the Emergency Department on the above date and was hospitalized for further evaluation of their emergent condition. Critical Care patient: No - Discharge Referral Referred to [facility] No
--- NOTE | 2018-06-05 19:01 | EKG ---
Test Reason : Blood Pressure : / mmHG Vent. Rate : 097 BPM Atrial Rate : 077 BPM P-R Int : 000 ms QRS Dur : 086 ms QT Int : 362 ms P-R-T Axes : 000 003 -06 degrees QTc Int : 459 ms ATRIAL FIBRILLATION MINIMAL VOLTAGE CRITERIA FOR LVH, MAY BE NORMAL VARIANT NONSPECIFIC ST ABNORMALITY ABNORMAL ECG NO PREVIOUS ECGS AVAILABLE Confirmed by OSCAR PATRICIO MD ([id number]) on 06/05/2018 7:00:55 PM Referred By: Confirmed By:OSCAR PATRICIO MD
--- NOTE | 2018-06-05 19:04 | EKG ---
Test Reason : Blood Pressure : / mmHG Vent. Rate : 142 BPM Atrial Rate : 131 BPM P-R Int : 000 ms QRS Dur : 086 ms QT Int : 266 ms P-R-T Axes : 000 021 -61 degrees QTc Int : 409 ms ATRIAL FIBRILLATION WITH RAPID VENTRICULAR RESPONSE NONSPECIFIC ST AND T WAVE ABNORMALITY ABNORMAL ECG NO PREVIOUS ECGS AVAILABLE Confirmed by OSCAR PATRICIO MD ([id number]) on 06/05/2018 7:03:42 PM Referred By: Confirmed By:OSCAR PATRICIO MD
--- NOTE | 2018-06-05 19:30 | PN ---
Teaching Attending Note Name of Resident: Dhruv Castro ATTENDING PHYSICIAN STATEMENT I saw and evaluated the patient. I reviewed the resident's note and discussed the case with the resident. I agree with the resident's findings and plan as documented. SUBJECTIVE: Feels better - no further episodes of L facial numbness/tingling OBJECTIVE: Afebrile/Hemodynamically Stable. Last Vital Signs Temp Pulse Resp BP Pulse Ox 98.2 F 75 18 130/87 97 06/05/18 17:29 06/05/18 17:29 06/05/18 17:29 06/05/18 17:29 06/05/18 09:38 HEENT - Atraumatic, Normocephalic Heart - S1, S2, RRR Lungs - clear to auscultation Abdomen - Soft, non-tender. Bowel Sounds normal. Extremities - mild pedal edema/no calf tenderness Neuro - AAO x 3. Tone/Power normal all 4 extremities. Laboratory Results - last 24 hr 06/04/18 06/04/18 06/05/18 20:20 20:20 06:38 WBC 4.7 RBC 4.48 Hgb 12.6 Hct 38.7 D MCV 86.5 MCH 28.2 MCHC 32.6 RDW 13.5 Plt Count 182 MPV 8.0 Sodium Potassium Chloride Carbon Dioxide Anion Gap BUN Creatinine Creat Clearance w eGFR Random Glucose Hemoglobin A1c % 6.0 Calcium Phosphorus Magnesium Total Bilirubin AST ALT Alkaline Phosphatase Troponin I < 0.02 C-Reactive Protein Total Protein Albumin Triglycerides Cholesterol Total LDL Cholesterol HDL Cholesterol 06/05/18 06/05/18 06:38 06:38 WBC RBC Hgb Hct MCV MCH MCHC RDW Plt Count MPV Sodium 142 Potassium 3.9 Chloride 111 H Carbon Dioxide 27 Anion Gap 4 L BUN 15 Creatinine 0.8 Creat Clearance w eGFR > 60 Random Glucose 102 Hemoglobin A1c % Calcium 8.0 L Phosphorus 3.3 Magnesium 2.0 Total Bilirubin 1.2 H AST 21 ALT 28 Alkaline Phosphatase 46 Troponin I C-Reactive Protein 0.4 H Total Protein 5.7 L Albumin 3.2 L Triglycerides 71 Cholesterol 194 Total LDL Cholesterol 88 HDL Cholesterol 89 H Current Medications Generic Name Dose Route Start Last Admin Trade Name Freq PRN Reason Stop Dose Admin Apixaban 5 mg 06/05/18 22:00 Eliquis - PO BID SANJUANITA Atorvastatin Calcium 40 mg 06/05/18 22:00 Lipitor - PO HS SANJUANITA Diltiazem HCl 30 mg 06/04/18 18:00 06/05/18 17:32 Cardizem - PO 30 mg Q6HPO SANJUANITA Administration Sodium Chloride 1,000 mls @ 100 mls/hr 06/04/18 14:00 06/05/18 15:34 Normal Saline - IV 06/05/18 23:59 Not Given ASDIR SANJUANITA ASSESSMENT/PLAN: 68 year old female with no sig PMH, presents after developing localizing neurological signs and syncope, found to have newly recognized Atrial Fibrillation with RVR that reverted to SR with Cardizem. 1. Atrial fibrillation with RVR - newly recognized. Back in SR. Medically Stable for discharge on Cardizem and Eliquis as per Cardio. For outpatient Cardiology follow up. Echo normal. TSH 3.16 2. Possible TIA/Syncope CT Head - no acute intracranial findings. Evaluated by Neuro - for EEG as outpatient with Neuro Follow up. Started on Eliquis.
--- NOTE | 2018-06-05 21:57 | PN ---
Progress Note, Physician Chief Complaint: Pt A&Ox3; feels well. History of Present Illness: 68y white woman (allie Bailey) with no known pmhx presents with not feeling well. pt found to be in rapid afib upon arrival. states she had some sob initially and felt generally weak this morning after awakening, when she came back from the bathroom she fell on the ground because she was feeling very week, falling on her face, Pt denies any LOC. Pt states after she fell, she had some L shoulder pain and L sided tingling/weakness that resolved after a few minutes. Pt endorses some facial pain in the nose/forehead. denies any cp, n/v, abd pain , back pain, neck pain. pt was feeling well yesterday and the past few days. no associated fever/cough, diarrhea, melena, bpr, dysuria. Pt gives hx of occasional bilateral ankle swelling. - Current Medication List Current Medications: Active Medications Apixaban (Eliquis -) 5 mg PO BID SANJUANITA Atorvastatin Calcium (Lipitor -) 40 mg PO HS [facility] Last Admin: 06/05/18 21:24 Dose: 40 mg Diltiazem HCl (Cardizem Cd -) 120 mg PO DAILY SANJUANITA Sodium Chloride (Normal Saline -) 1,000 mls @ 100 mls/hr IV ASDIR SANJUANITA Stop: 06/05/18 23:59 Last Admin: 06/05/18 15:34 Dose: Not Given - Objective Vital Signs: Vital Signs Temperature 97.9 F 06/05/18 20:37 Pulse Rate 81 06/05/18 20:37 Respiratory Rate 20 06/05/18 20:37 Blood Pressure 140/77 06/05/18 20:37 O2 Sat by Pulse Oximetry (%) 99 06/05/18 20:37 Labs: CBC, BMP 06/05/18 06:38 06/05/18 06:38 INR, PTT INR 0.92 (0.83-1.09) 06/04/18 09:30 Problem List - Problems (1) HTN (hypertension) Code(s): I10 - ESSENTIAL (PRIMARY) HYPERTENSION (2) Syncope Assessment/Plan: Pt is unsure if she lost consciousness. TNI < 0.02 x 2 F/u orthostatic vital signs. Avoid dehydration. ECHO for LVEF. Code(s): R55 - SYNCOPE AND COLLAPSE (3) Atrial fibrillation with RVR Assessment/Plan: IVP diltiazem, with PO diltiazem; now converted to normal sinus rhythm. ECHO: normal LVEF; normal chamber sizes; mild MR; normal chamber sizes. Start apixaban. F/u as oupatient for stress treadmill test. Pt will be referred to EP for furture options. Code(s): I48.91 - UNSPECIFIED ATRIAL FIBRILLATION (4) Hypokalemia Code(s): E87.6 - HYPOKALEMIA
[2018-06-05] MEDS ORDERED: APIXABAN 5 MG TABLET PO SCH (22:00)
[2018-06-05] MEDS ORDERED: ATORVASTATIN CA 40 MG TABLET (FP) PO SCH (22:00)
[2018-06-05] MEDS: APIXABAN 5 MG TABLET PO SCH (22:26)
[2018-06-06 09:51] VITALS: TEMP 98.6
[2018-06-06] MEDS: APIXABAN 5 MG TABLET PO SCH (09:51)
[2018-06-06] MEDS ORDERED: SODIUM CHLORIDE 500 ML IV STA (09:53)
[2018-06-06 13:10] VITALS: PULSE 87
[2018-06-06 13:11] VITALS: BP 131/75
--- NOTE | 2018-06-06 13:28 | PN ---
Teaching Attending Note Name of Resident: Dhruv Castro ATTENDING PHYSICIAN STATEMENT I saw and evaluated the patient. I reviewed the resident's note and discussed the case with the resident. I agree with the resident's findings and plan as documented. SUBJECTIVE: Feels well. No chest pain/palpitations. Some lightheadedness yesterday evening, now resolved. OBJECTIVE: Afebrile, Hemodynamically Stable. Last Vital Signs Temp Pulse Resp BP Pulse Ox 98.6 F 87 18 131/75 99 06/06/18 09:48 06/06/18 13:10 06/06/18 13:10 06/06/18 13:10 06/06/18 09:00 HEENT - Atraumatic, Normocephalic Heart - S1, S2, RRR Lungs - clear to auscultation - no crackles/wheeze Abdomen - Soft, non-tender. Bowel Sounds normal. Extremities - mild pedal edema/no calf tenderness Neuro - AAO x 3. Tone/Power normal all 4 extremities. Laboratory Results - last 24 hr 06/05/18 06:38 C-Reactive Protein 0.4 H Triglycerides 71 Cholesterol 194 Total LDL Cholesterol 88 HDL Cholesterol 89 H Current Medications Generic Name Dose Route Start Last Admin Trade Name Freq PRN Reason Stop Dose Admin Apixaban 5 mg 06/05/18 22:00 06/06/18 09:51 Eliquis - PO 5 mg BID SANJUANITA Administration Atorvastatin Calcium 40 mg 06/05/18 22:00 06/05/18 21:24 Lipitor - PO 40 mg HS SANJUANITA Administration Diltiazem HCl 120 mg 06/05/18 21:45 06/06/18 09:51 Cardizem Cd - PO 120 mg DAILY SANJUANITA Administration ASSESSMENT/PLAN: 68 year old female with no sig PMH, presents after developing localizing neurological signs and pre-syncopal symptoms, found to have newly recognized Atrial Fibrillation with RVR that reverted to SR with Cardizem. 1. Atrial fibrillation with RVR - newly recognized. Reverted back to SR. Medically Stable for discharge on Cardizem and Eliquis as per Cardio. For outpatient Cardiology follow up for EP and Stress Test. Echo normal. TSH 3.16 2. Possible TIA/Syncope CT Head - no acute intracranial findings. Evaluated by Neuro - for EEG as outpatient. Started on Eliquis and Lipitor. LFT check and Neuro follow up in 4-6 weeks. Orthostatic vitals negative. Medically and Hemodynamically stable for discharge with PCP, Neuro, and Cardio follow up.
== END 2018-06-06 13:41 | disposition home or self-care (01) | DRG 309 ==
LOC: JER 09:11 → JERBED 12:15 → J4S 15:36
PROVIDERS: ADMIT Internal Medicine
DX: I48.91 Unspecified atrial fibrillation (principal); G45.8 Other transient cerebral ischemic attacks and related syndromes; R29.701 NIHSS score 1; R29.810 Facial weakness; Z78.0 Asymptomatic menopausal state; R55 Syncope and collapse; E87.6 Hypokalemia; I10 Essential (primary) hypertension
CPT/HCPCS: 36415; 70450-TC; 70486-TC; 71045-TC-FY; 80053; 80061; 81003; 81015; 82550; 82553; 83036; 83721; 83735; 84100; 84443; 84484; 85025; 85027; 85610; 86038; 86140; 93005; 93010; 93306-TC; 93880-TC; 97116-GP; 97161-GP; 99284-25; J7030

== ENCOUNTER 2021-06-02 17:20 | Emergency (ER) | payer OTHER ==
[2021-06-02 17:32] VITALS: BP 126/78; PULSE 93; TEMP 99; BMI 26.5
== END 2021-06-02 19:07 | disposition home or self-care (01) ==
LOC: JER 17:20
DX: B34.9 Viral infection, unspecified (principal)
CPT/HCPCS: 87804; 99283-25; C9803; U0003; U0005